=== PATIENT | male | born 1995 | race Caucasian/White ===

== ENCOUNTER 2023-12-21 07:11 | Emergency (ER) | payer SELFPAY ==
[~2023-12-21] VITALS: Ht 177.8 cm; Wt 94.0 kg
[2023-12-21 07:14] VITALS: TEMP 98.5; O2SAT 97
[2023-12-21] MEDS: TETANUS, DIPHTHERIA, PERTUSSIS VAC/PF 0.5ML (>10YR OLD) IM ONE (07:30)
[2023-12-21] MEDS: LIDOCAINE HCL/PF 1% 10 MG/ML 5ML VIAL INFIL ONE (07:30)
[2023-12-21] MEDS: BACITRACIN ZINC OINT UDPKT TOP ONE (07:57)
[2023-12-21 10:29] VITALS: BP 129/76; PULSE 94; RESP 12
[2023-12-21] MEDS: KETOROLAC 30MG/ML VIAL IM ONE (10:29)
== END 2023-12-21 11:20 | disposition home or self-care (01) ==
LOC: ER 07:11
DX: S61.411A Laceration without foreign body of right hand, initial encounter (principal); S80.01XA Contusion of right knee, initial encounter; X58.XXXA Exposure to other specified factors, initial encounter; Y93.89 Activity, other specified; Y92.89 Other specified places as the place of occurrence of the external cause; Y99.8 Other external cause status
CPT/HCPCS: 73130; 73562; 12002; 96372; 99284; J1885; J3490; Z7610 ×3; 90715